=== PATIENT | female | born 2000 | race Two or more races ===

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

== ENCOUNTER 2023-01-17 12:26 | Emergency (ER) | payer OTHER ==
[2023-01-17 12:41] VITALS: BP 112/61; PULSE 72; RESP 18; TEMP 98.1; BMI 41.0
[2023-01-17] MEDS ORDERED: SODIUM CHLORIDE 1,000 ML IV STA (13:04)
[2023-01-17 14:55] LABS: URINE APPEARANCE CLEAR; URINE BILIRUBIN NEGATIVE (NEGATIVE); URINE COLOR YELLOW; URINE GLUCOSE (UA) NEGATIVE (NEGATIVE); URINE KETONE NEGATIVE (NEGATIVE); URINE LEUK ESTERASE NEGATIVE (NEGATIVE); URINE NITRITE NEGATIVE (NEGATIVE); URINE PROTEIN NEGATIVE (NEGATIVE); URINE UROBILINOGEN 0.2 mg/dL (0.2-1.0)
[2023-01-17 15:06] LABS: BASO % 0.6 % (0-2.0); EOS % 2.2 % (0-4.5); HEMATOCRIT 38.1 % (32.4-45.2); HEMOGLOBIN 11.7 GM/dL (10.7-15.3); LYMPH % 32.1 % (8-40); MCH 22.2 pg (25.7-33.7); MCHC 30.8 g/dl (32.0-36.0); MEAN PLT VOLUME 8.6 fl (7.5-11.1); MONO % 6.9 % (3.8-10.2); NEUT % 58.2 % (42.8-82.8); PLATELET COUNT 285 10^3/uL (134-434); RBC 5.28 M/mm3 (3.60-5.2); RDW 14.7 % (11.6-15.6); WHITE BLOOD COUNT 7.5 K/mm3 (4.0-10.0)
[2023-01-17 15:39] LABS: POTASSIUM 5.2 mmol/L (3.5-5.1)
[2023-01-17 15:40] LABS: CALCIUM 8.4 mg/dL (8.5-10.1)
[2023-01-17 15:42] LABS: ALBUMIN 3.6 g/dl (3.4-5.0); BLOOD UREA NITROGEN 8.6 mg/dL (7-18)
[2023-01-17 15:44] LABS: CREATININE 0.7 mg/dL (0.55-1.3)
[2023-01-17 15:45] LABS: BILIRUBIN,TOTAL 0.6 mg/dL (0.2-1); TOT PROT 7.2 g/dl (6.4-8.2)
== END 2023-01-17 17:45 | disposition home or self-care (01) ==
LOC: JER 12:26
PROC: 3E0337Z Introduction of Electrolytic and Water Balance Substance into Peripheral Vein, Percutaneous Approach (ICD-10-PCS; principal; 2023-01-17)
DX: O26.891 Other specified pregnancy related conditions, first trimester (principal); R42 Dizziness and giddiness; R11.0 Nausea; Z3A.01 Less than 8 weeks gestation of pregnancy
CPT/HCPCS: 36415; 76801-TC; 80053; 81003; 84702; 84703; 85025; 87086

== ENCOUNTER 2023-01-26 23:40 | Inpatient (IN) | payer OTHER ==
[2023-01-27] MEDS ORDERED: ONDANSETRON 4 MG/2 ML VIAL IVPUSH ONE (00:13)
[2023-01-27] MEDS ORDERED: LACTATED RINGERS SOLUTION 1000 ML INFUS.BAG IV ONE (00:15)
[2023-01-27] MEDS ORDERED: ONDANSETRON 4 MG/2 ML VIAL ONE (00:20)
[2023-01-27 00:47] LABS: BASO % 0.5 % (0-2.0); EOS % 0.1 % (0-4.5); HEMATOCRIT 33.9 % (32.4-45.2); HEMOGLOBIN 10.9 GM/dL (10.7-15.3); LYMPH % 19.5 % (8-40); MCH 22.5 pg (25.7-33.7); MCHC 32.2 g/dl (32.0-36.0); MEAN PLT VOLUME 8.5 fl (7.5-11.1); MONO % 5.8 % (3.8-10.2); NEUT % 74.1 % (42.8-82.8); PLATELET COUNT 267 10^3/uL (134-434); RBC 4.85 M/mm3 (3.60-5.2); RDW 14.9 % (11.6-15.6); WHITE BLOOD COUNT 9.3 K/mm3 (4.0-10.0)
[2023-01-27 01:04] LABS: POTASSIUM 5.1 mmol/L (3.5-5.1)
[2023-01-27 01:07] LABS: ALBUMIN 3.4 g/dl (3.4-5.0); BLOOD UREA NITROGEN 6.2 mg/dL (7-18); MAGNESIUM 1.9 mg/dL (1.8-2.4)
[2023-01-27 01:08] LABS: CALCIUM 8.4 mg/dL (8.5-10.1)
[2023-01-27 01:10] LABS: CREATININE 0.7 mg/dL (0.55-1.3); PHOSPHOROUS 3.2 mg/dL (2.5-4.9)
[2023-01-27 01:11] LABS: BILIRUBIN,TOTAL 0.9 mg/dL (0.2-1); TOT PROT 7.1 g/dl (6.4-8.2)
[2023-01-27] MEDS ORDERED: SODIUM CHLORIDE 0.9% 500 ML INFUS.BAG IV ONE ×2 (01:21→18:12)
[2023-01-27] MEDS ORDERED: METOCLOPRAMIDE HCL INJECTION 10 MG/2 ML VIAL IVPUSH ONE (02:06)
[2023-01-27] MEDS ORDERED: METOCLOPRAMIDE HCL INJECTION 10 MG/2 ML VIAL ONE (02:07)
[2023-01-27] MEDS ORDERED: ACETAMINOPHEN INJECTION 100 ML IVPB ONE (02:31)
[2023-01-27] MEDS ORDERED: PYRIDOXINE HCL 100 MG/1 ML VIAL IM ONE (02:31)
[2023-01-27] MEDS ORDERED: ACETAMINOPHEN 1000 MG/100 ML BAG IVPB ONE (02:31)
[2023-01-27] MEDS: PYRIDOXINE HCL (B-6) 50 MG TABLET (FP) PO SCH ×4 (03:40→17:08)
[2023-01-27] MEDS ORDERED: SODIUM CHLORIDE 1,000 ML IV SCH (03:45)
[2023-01-27] MEDS: diphenhydrAMINE HCL 25 MG CAPSULE (FP) PO SCH ×3 (03:54→10:14)
[2023-01-27] MEDS ORDERED: PANTOPRAZOLE SODIUM 40 MG VIAL IVPUSH ONE (06:24)
[2023-01-27] MEDS ORDERED: PANTOPRAZOLE SODIUM 40 MG/100 ML BAG IVPB ONE (06:31)
[2023-01-27] MEDS ORDERED: MAG HYDROX/AL HYDROX/SIMETH 30 ML UNIT-DOSE CUP ONE (06:31)
[2023-01-27] MEDS: MAG HYDROX/AL HYDROX/SIMETH 30 ML UNIT-DOSE CUP PO SCH ×4 (06:38→17:12)
[2023-01-27 07:21] LABS: HEMATOCRIT 32.7 % (32.4-45.2); HEMOGLOBIN 10.1 GM/dL (10.7-15.3); MCHC 30.9 g/dl (32.0-36.0); MEAN CELL VOLUME 71.2 fl (80-96); MEAN PLT VOLUME 8.9 fl (7.5-11.1); PLATELET COUNT 264 10^3/uL (134-434); POTASSIUM 3.4 mmol/L (3.5-5.1); RBC 4.59 M/mm3 (3.60-5.2); RDW 14.4 % (11.6-15.6); WHITE BLOOD COUNT 8.1 K/mm3 (4.0-10.0)
[2023-01-27 07:28] LABS: CALCIUM 8.7 mg/dL (8.5-10.1)
[2023-01-27 07:29] LABS: BLOOD UREA NITROGEN 5.6 mg/dL (7-18); MAGNESIUM 1.8 mg/dL (1.8-2.4); PHOSPHOROUS 3.2 mg/dL (2.5-4.9)
[2023-01-27 07:30] LABS: ALBUMIN 3.3 g/dl (3.4-5.0)
[2023-01-27] MEDS ORDERED: diphenhydrAMINE HCL 25 MG CAPSULE (FP) PO ONE (07:30)
[2023-01-27 07:32] LABS: BILIRUBIN,TOTAL 0.9 mg/dL (0.2-1); CREATININE 0.5 mg/dL (0.55-1.3); TOT PROT 6.3 g/dl (6.4-8.2)
[2023-01-27 12:03] VITALS: BMI 38.8
[2023-01-27] MEDS: ACETAMINOPHEN 325 MG TABLET (FP) PO PRN (15:11)
[2023-01-27] MEDS: SODIUM CHLORIDE 0.9% 500 ML INFUS.BAG IV ONE ×2 (15:16→15:17)
[2023-01-27] MEDS: ONDANSETRON 4 MG/2 ML VIAL IVPUSH PRN ×2 (15:17→19:35)
[2023-01-27 15:55] VITALS: RESP 18
[2023-01-27] MEDS ORDERED: SODIUM CHLORIDE 1,000 ML IV ONE (18:30)
[2023-01-28] MEDS: MAG HYDROX/AL HYDROX/SIMETH 30 ML UNIT-DOSE CUP PO SCH ×4 (02:57→17:39)
[2023-01-28] MEDS: ONDANSETRON 4 MG/2 ML VIAL IVPUSH PRN ×2 (02:57→08:32)
[2023-01-28] MEDS: PYRIDOXINE HCL (B-6) 50 MG TABLET (FP) PO SCH ×3 (06:07→16:42)
[2023-01-28 11:46] LABS: HEMATOCRIT 34.4 % (32.4-45.2); HEMOGLOBIN 10.6 GM/dL (10.7-15.3); MCH 21.9 pg (25.7-33.7); MCHC 30.8 g/dl (32.0-36.0); MEAN CELL VOLUME 71.3 fl (80-96); PLATELET COUNT 267 10^3/uL (134-434); RBC 4.83 M/mm3 (3.60-5.2); RDW 14.4 % (11.6-15.6)
[2023-01-28 12:09] LABS: BLOOD UREA NITROGEN 5.7 mg/dL (7-18)
[2023-01-28 12:11] LABS: POTASSIUM 3.2 mmol/L (3.5-5.1)
[2023-01-28 12:12] LABS: CALCIUM 8.5 mg/dL (8.5-10.1); MAGNESIUM 2.1 mg/dL (1.8-2.4)
[2023-01-28 12:13] LABS: CREATININE 0.4 mg/dL (0.55-1.3)
[2023-01-28] MEDS ORDERED: ONDANSETRON 4 MG/2 ML VIAL IVPB PRN (14:22)
[2023-01-28] MEDS: SODIUM CHLORIDE 0.9%/KCL 20 MEQ/1,000 ML INFUS.BAG IV SCH ×2 (14:32→23:37)
[2023-01-29 00:32] LABS: EPI CELLS >36 /uL (0-25.1); HYALINE CASTS 3 /uL (0-3.1); PH,URINE 6.5 (5.0-8.0); URINE APPEARANCE TURBID; URINE BACTERIA 341 /uL (0-1359); URINE BILIRUBIN 1+ (NEGATIVE); URINE COLOR DK YELLOW; URINE GLUCOSE (UA) NEGATIVE (NEGATIVE); URINE KETONE 4+ (NEGATIVE); URINE LEUK ESTERASE NEGATIVE (NEGATIVE); URINE NITRITE NEGATIVE (NEGATIVE); URINE PROTEIN 1+ (NEGATIVE); URINE RBC 22 /uL (0-23.9); URINE WBC 12 /uL (0-25.8)
[2023-01-29] MEDS: ACETAMINOPHEN 325 MG TABLET (FP) PO PRN (02:29)
[2023-01-29] MEDS ORDERED: ONDANSETRON 8 MG TABLET (FP) PO PRN (06:00)
[2023-01-29] MEDS: PYRIDOXINE HCL (B-6) 50 MG TABLET (FP) PO SCH ×3 (06:18→15:52)
[2023-01-29 10:47] LABS: HEMATOCRIT 33.5 % (32.4-45.2); HEMOGLOBIN 10.4 GM/dL (10.7-15.3); MCH 22.1 pg (25.7-33.7); MCHC 31.1 g/dl (32.0-36.0); MEAN CELL VOLUME 71.2 fl (80-96); PLATELET COUNT 263 10^3/uL (134-434); RBC 4.71 M/mm3 (3.60-5.2); RDW 14.4 % (11.6-15.6); WHITE BLOOD COUNT 10.6 K/mm3 (4.0-10.0)
[2023-01-29 11:01] LABS: POTASSIUM 3.2 mmol/L (3.5-5.1)
[2023-01-29 11:09] LABS: CALCIUM 8.6 mg/dL (8.5-10.1)
[2023-01-29 11:10] LABS: BLOOD UREA NITROGEN 6.1 mg/dL (7-18)
[2023-01-29 11:13] LABS: CREATININE 0.5 mg/dL (0.55-1.3); PHOSPHOROUS 3.1 mg/dL (2.5-4.9)
[2023-01-29] MEDS: MAG HYDROX/AL HYDROX/SIMETH 30 ML UNIT-DOSE CUP PO SCH ×2 (11:15→17:22)
[2023-01-29] MEDS ORDERED: ONDANSETRON 4 MG/2 ML VIAL IVPUSH PRN (14:50)
[2023-01-29] MEDS: SODIUM CHLORIDE 1,000 ML IV SCH (15:53)
[2023-01-29] MEDS ORDERED: POTASSIUM CHLORIDE TABS 20 MEQ TABLET.ER (FP) PO ONE (17:20)
[2023-01-30] MEDS: MAG HYDROX/AL HYDROX/SIMETH 30 ML UNIT-DOSE CUP PO SCH ×5 (00:40→11:34)
[2023-01-30] MEDS: SODIUM CHLORIDE 1,000 ML IV SCH (01:09)
[2023-01-30] MEDS: PYRIDOXINE HCL (B-6) 50 MG TABLET (FP) PO SCH ×2 (06:44→10:43)
[2023-01-30 09:26] VITALS: BP 140/80; PULSE 63; TEMP 98.3
[2023-01-30] MEDS ORDERED: PRENATAL VITAMINS W/ FOLIC ACID TABLET (FP) PO SCH (10:00)
[2023-01-30 10:34] LABS: HEMATOCRIT 33.1 % (32.4-45.2); HEMOGLOBIN 10.6 GM/dL (10.7-15.3); MCH 22.4 pg (25.7-33.7); MCHC 32.2 g/dl (32.0-36.0); MEAN CELL VOLUME 69.5 fl (80-96); MEAN PLT VOLUME 8.8 fl (7.5-11.1); PLATELET COUNT 258 10^3/uL (134-434); RBC 4.75 M/mm3 (3.60-5.2); RDW 14.3 % (11.6-15.6); WHITE BLOOD COUNT 10.4 K/mm3 (4.0-10.0)
[2023-01-30 11:23] LABS: ALBUMIN 3.2 g/dl (3.4-5.0)
[2023-01-30 11:25] LABS: BLOOD UREA NITROGEN 5.3 mg/dL (7-18); CALCIUM 8.2 mg/dL (8.5-10.1); PHOSPHOROUS 3.5 mg/dL (2.5-4.9); TOT PROT 6.2 g/dl (6.4-8.2)
[2023-01-30 11:27] LABS: CREATININE 0.4 mg/dL (0.55-1.3)
[2023-01-30 11:32] LABS: BILIRUBIN,TOTAL 0.9 mg/dL (0.2-1)
[2023-01-30] MEDS ORDERED: POTASSIUM CHLORIDE ORAL LIQUID 20 MEQ/15 ML PO ONE (13:53)
[2023-01-30] MEDS ORDERED: SODIUM CHLORIDE 0.9%/KCL 20 MEQ/1,000 ML INFUS.BAG IV SCH (14:00)
[2023-01-30] MEDS ORDERED: POTASSIUM CHLORIDE TABS 20 MEQ TABLET.ER (FP) PO SCH (14:30)
== END 2023-01-30 15:15 | disposition home or self-care (01) | DRG 566 ==
LOC: JER 23:40 → JERBED 01-27 01:49 → J6S 01-27 09:39 → OBSVTOIN 01-29 13:24
PROVIDERS: ADMIT Internal Medicine; ATTEND Internal Medicine
DX: O21.0 Mild hyperemesis gravidarum (principal); O99.011 Anemia complicating pregnancy, first trimester; Z3A.08 8 weeks gestation of pregnancy
CPT/HCPCS: 0241U-QW; 36415; 76705-TC; 76801-TC; 80048; 80053; 81003; 82728; 83036; 83540; 83550; 83690; 83735; 84100; 84439; 84443; 85025; 85027; 87086; 93005; 93010; 99285-25; G0378

== ENCOUNTER 2023-05-23 00:04 | Observation (INO) | payer OTHER ==
[2023-05-23 00:16] VITALS: RESP 18; TEMP 97.7; BMI 38.2
[2023-05-23] MEDS ORDERED: METOCLOPRAMIDE HCL INJECTION 10 MG/2 ML VIAL ONE (00:58)
[2023-05-23] MEDS: LACTATED RINGERS SOLUTION 1000 ML INFUS.BAG IV ONE (01:16)
[2023-05-23] MEDS: METOCLOPRAMIDE HCL INJECTION 10 MG/2 ML VIAL IVPB ONE (01:16)
[2023-05-23 01:20] LABS: BASO % 0.5 % (0-2.0); HEMOGLOBIN 10.8 GM/dL (10.7-15.3); LYMPH % 15.7 % (8-40); MCH 22.9 pg (25.7-33.7); MCHC 32.6 g/dl (32.0-36.0); MEAN CELL VOLUME 70.3 fl (80-96); MEAN PLT VOLUME 8.8 fl (7.5-11.1); MONO % 7.1 % (3.8-10.2); NEUT % 76.7 % (42.8-82.8); PLATELET COUNT 323 10^3/uL (134-434); RDW 14.3 % (11.6-15.6)
[2023-05-23 01:22] LABS: EPI CELLS >36 /uL (0-25.1); HYALINE CASTS 2 /uL (0-3.1); PH,URINE >= 9.0 (5.0-8.0); URINE APPEARANCE CLOUDY; URINE BACTERIA 924 /uL (0-1359); URINE BILIRUBIN 1+ (NEGATIVE); URINE COLOR DK YELLOW; URINE GLUCOSE (UA) NEGATIVE (NEGATIVE); URINE KETONE 4+ (NEGATIVE); URINE LEUK ESTERASE TRACE (NEGATIVE); URINE NITRITE NEGATIVE (NEGATIVE); URINE PROTEIN 2+ (NEGATIVE); URINE RBC 36 /uL (0-23.9); URINE WBC 35 /uL (0-25.8)
[2023-05-23 01:42] LABS: POTASSIUM 3.6 mmol/L (3.5-5.1)
[2023-05-23 01:44] LABS: CALCIUM 8.7 mg/dL (8.5-10.1)
[2023-05-23 01:45] LABS: BLOOD UREA NITROGEN 6.6 mg/dL (7-18)
[2023-05-23 01:47] LABS: CREATININE 0.5 mg/dL (0.55-1.3)
[2023-05-23 01:49] LABS: TOT PROT 6.9 g/dl (6.4-8.2)
[2023-05-23] MEDS ORDERED: ONDANSETRON 4 MG/2 ML VIAL ONE ×4 (01:57→17:24)
[2023-05-23] MEDS: ONDANSETRON 4 MG/2 ML VIAL IVPB ONE (02:19)
[2023-05-23] MEDS ORDERED: PROMETHAZINE HCL 25 MG/1 ML VIAL ONE (03:15)
[2023-05-23] MEDS: PROMETHAZINE HCL 50 MG/1 ML AMP IM ONE (03:24)
[2023-05-23] MEDS ORDERED: ACETAMINOPHEN INJECTION 100 ML IVPB ONE (03:32)
[2023-05-23] MEDS: ACETAMINOPHEN 1000 MG/100 ML BAG IVPB ONE (03:44)
[2023-05-23] MEDS ORDERED: ACETAMINOPHEN 1000 MG/100 ML BAG IVPB PRN (04:43)
[2023-05-23] MEDS: CEPHALEXIN MONOHYDRATE 500 MG CAPSULE (UD) PO ONE (05:27)
[2023-05-23] MEDS: SODIUM CHLORIDE 1,000 ML IV SCH (06:22)
[2023-05-23] MEDS: ONDANSETRON 4 MG/2 ML VIAL IVPB PRN (06:37)
[2023-05-23] MEDS: SULBACTAM NA IVPB SCH (06:42)
[2023-05-23] MEDS: AMPICILLIN NA IVPB SCH (06:42)
[2023-05-23] MEDS: SODIUM CHLORIDE IVPB SCH (06:42)
[2023-05-23] MEDS ORDERED: PIPERACILLIN/TAZOB 3.375 GM 3.375 GM in DEXTROSE 5%-WATER - 50 ML IVPB SCH (06:45)
[2023-05-23] MEDS ORDERED: PIPERACILLIN/TAZOB 3.375 GM 3.375 GM/50 ML BAG IVPB ONE ×2 (06:48→12:49)
[2023-05-23] MEDS: PIPERACILLIN/TAZOB 3.375 GM 3.375 GM in DEXTROSE 5%-WATER - 50 ML IVPB SCH (06:50)
[2023-05-23 07:20] LABS: HEMATOCRIT 30.1 % (32.4-45.2); HEMOGLOBIN 9.8 GM/dL (10.7-15.3); MCH 23.2 pg (25.7-33.7); MCHC 32.6 g/dl (32.0-36.0); MEAN CELL VOLUME 71.2 fl (80-96); MEAN PLT VOLUME 8.9 fl (7.5-11.1); PLATELET COUNT 266 10^3/uL (134-434); RBC 4.23 M/mm3 (3.60-5.2); RDW 14.3 % (11.6-15.6); WHITE BLOOD COUNT 10.6 K/mm3 (4.0-10.0)
[2023-05-23 08:03] LABS: POTASSIUM 3.4 mmol/L (3.5-5.1)
[2023-05-23 08:07] LABS: ALBUMIN 2.6 g/dl (3.4-5.0); CALCIUM 8.2 mg/dL (8.5-10.1); MAGNESIUM 1.7 mg/dL (1.8-2.4)
[2023-05-23 08:08] LABS: BLOOD UREA NITROGEN 6.2 mg/dL (7-18)
[2023-05-23 08:10] LABS: CREATININE 0.4 mg/dL (0.55-1.3)
[2023-05-23 08:11] LABS: PHOSPHOROUS 3.4 mg/dL (2.5-4.9)
[2023-05-23 08:12] LABS: TOT PROT 6.1 g/dl (6.4-8.2)
[2023-05-23] MEDS ORDERED: CEFTRIAXONE 1,000 MG in DEXTROSE 5%-WATER - 50 ML IVPB SCH (10:00)
[2023-05-23 10:43] VITALS: BP 122/62; PULSE 80
[2023-05-23] MEDS ORDERED: SODIUM CHLORIDE 1,000 ML IV SCH (10:45)
[2023-05-23] MEDS ORDERED: PIPERACILLIN/TAZOB 4.5 GM 4.5 GM/100 ML BAG IVPB ONE (17:25)
== END 2023-05-23 19:10 | disposition left against medical advice (07) ==
LOC: JER 00:04 → JERBED 02:21
PROVIDERS: ADMIT Internal Medicine
PROC: 3E03329 Introduction of Other Anti-infective into Peripheral Vein, Percutaneous Approach (ICD-10-PCS; principal; 2023-05-23)
PROC: 3E033NZ Introduction of Analgesics, Hypnotics, Sedatives into Peripheral Vein, Percutaneous Approach (ICD-10-PCS; 2023-05-23)
PROC: 3E0337Z Introduction of Electrolytic and Water Balance Substance into Peripheral Vein, Percutaneous Approach (ICD-10-PCS; 2023-05-23)
PROC: 3E033GC Introduction of Other Therapeutic Substance into Peripheral Vein, Percutaneous Approach (ICD-10-PCS; 2023-05-23)
DX: O21.9 Vomiting of pregnancy, unspecified (principal); R11.2 Nausea with vomiting, unspecified; Z3A.24 24 weeks gestation of pregnancy; R10.31 Right lower quadrant pain
CPT/HCPCS: 0241U-QW; 36415; 76700-TC; 80053; 81003; 83690; 83735; 84100; 85025; 85027; 87086; 93005; 93010; 96365; 96372; 96375; 96376; 99285-25; G0378; J0131

== ENCOUNTER 2023-08-29 14:15 | Inpatient (IN) | payer OTHER ==
[2023-08-29] MEDS: ELECTROLYTE-148 SOLN 1,000 ML IV SCH ×2 (14:45→16:45)
[2023-08-29 15:23] VITALS: BMI 44.1
[2023-08-29 16:07] LABS: BASO % 0.2 % (0-2.0); HEMATOCRIT 37.2 % (32.4-45.2); HEMOGLOBIN 11.6 GM/dL (10.7-15.3); LYMPH % 17.1 % (8-40); MCH 21.6 pg (25.7-33.7); MCHC 31.2 g/dl (32.0-36.0); MEAN CELL VOLUME 69.3 fl (80-96); MEAN PLT VOLUME 8.9 fl (7.5-11.1); MONO % 7.8 % (3.8-10.2); NEUT % 74.9 % (42.8-82.8); PLATELET COUNT 308 10^3/uL (134-434); RBC 5.37 M/mm3 (3.60-5.2); RDW 16.8 % (11.6-15.6); WHITE BLOOD COUNT 9.8 K/mm3 (4.0-10.0)
[2023-08-29 16:17] LABS: INR 0.93 (0.83-1.09); PROTHROMBIN TIME (PATIENT) 10.5 SEC (9.7-13.0)
[2023-08-29 16:20] LABS: ACTIVATED PTT 27.3 SECONDS (25.2-36.5)
[2023-08-29 16:23] LABS: POTASSIUM 3.2 mmol/L (3.5-5.1)
[2023-08-29 16:26] LABS: BLOOD UREA NITROGEN 6.9 mg/dL (7-18); CALCIUM 8.5 mg/dL (8.5-10.1)
[2023-08-29 16:30] LABS: CREATININE 0.5 mg/dL (0.55-1.3)
[2023-08-29 16:42] LABS: SYPHILIS W/ RPR CONF NON-REACTIVE (NONREACTIVE)
[2023-08-29] MEDS ORDERED: FENTANYL/BUPIVACAINE/NS/PF - PCEA - 50 ML DISP.SYRIN EP ONE ×2 (16:50→22:25)
[2023-08-29] MEDS: AMPICILLIN - 2 GM in SODIUM CHLORIDE 100 ML IVPB ONE (17:00)
[2023-08-29] MEDS ORDERED: AMPICILLIN SODIUM 2 GM VIAL ONE (17:00)
[2023-08-29 17:07] LABS: ANISOCYTOSIS 3+; MACROCYTOSIS 0
[2023-08-29 17:11] LABS: HIV INTERPRETATION NEGATIVE (NEGATIVE)
[2023-08-29] MEDS ORDERED: FENTANYL CITRATE/PF 50 MCG/ML VIAL ONE (17:32)
[2023-08-29] MEDS ORDERED: BUPIVACAINE HCL/PF 0.25% (2.5MG/ML) 10 ML VIAL ONE (17:32)
[2023-08-29] MEDS: FENTANYL/BUPIVACAINE/NS/PF - PCEA - 50 ML DISP.SYRIN EP SCH (17:55)
[2023-08-29] MEDS ORDERED: NALOXONE HCL 0.4 MG/ML VIAL IVPUSH PRN (18:01)
[2023-08-29] MEDS ORDERED: AMPICILLIN SODIUM 1 GM VIAL ONE (20:31)
[2023-08-29] MEDS: AMPICILLIN - 1 GM in SODIUM CHLORIDE 100 ML IVPB SCH (20:37)
[2023-08-29] MEDS ORDERED: OXYTOCIN 20 UNITS in 0.9% NS 20 UNIT/1,000 ML INFUS.BAG IV ONE (22:05)
[2023-08-29] MEDS ORDERED: LIDOCAINE HCL 1% PRESERVATIVE FREE - 30ML VIAL ONE (22:05)
[2023-08-29] MEDS: OXYTOCIN 20 UNITS in 0.9% NS 20 UNIT/1,000 ML INFUS.BAG IV SCH (22:57)
[2023-08-29] MEDS ORDERED: BENZOCAINE 20% 57 GM BOTTLE TP PRN (23:15)
[2023-08-29] MEDS ORDERED: oxyCODONE HCL 5 MG TABLET PO PRN (23:15)
[2023-08-29] MEDS ORDERED: BISACODYL 10 MG SUPP.RECT RC PRN (23:15)
[2023-08-29] MEDS ORDERED: METHYLERGONOVINE MALEATE 0.2 MG/1 ML AMP IM PRN (23:15)
[2023-08-29] MEDS ORDERED: WITCH HAZEL 50% (TUCKS) 40 PAD/JAR PAD TP PRN (23:15)
[2023-08-29] MEDS ORDERED: ACETAMINOPHEN 325 MG TABLET (FP) PO PRN (23:15)
[2023-08-29] MEDS ORDERED: BENZOCAINE 28 GM HEMORRHOIDAL OINTMENT TP PRN (23:15)
[2023-08-29 23:28] LABS: CORD BASE EXCESS 0.4 mmol/L (0-2); CORD HCO3 26.5 mmHg (20-29); CORD PCO2 47.6 mmHg (30-78); CORD PCO2 57.7 mmHg (30-78); CORD pH 7.334 (7.14-7.44); CORD pH 7.363 (7.14-7.44)
[2023-08-30] MEDS: IBUPROFEN 600 MG TABLET (FP) PO PRN (01:43)
[2023-08-30] MEDS: ONDANSETRON 4 MG/2 ML VIAL IVPUSH PRN (04:36)
[2023-08-30 08:05] LABS: BASO % 0.2 % (0-2.0); EOS % 0.1 % (0-4.5); HEMATOCRIT 32.9 % (32.4-45.2); HEMOGLOBIN 10.4 GM/dL (10.7-15.3); LYMPH % 12.3 % (8-40); MCH 22.4 pg (25.7-33.7); MCHC 31.6 g/dl (32.0-36.0); MEAN PLT VOLUME 9.1 fl (7.5-11.1); MONO % 9.1 % (3.8-10.2); NEUT % 78.3 % (42.8-82.8); PLATELET COUNT 254 10^3/uL (134-434); RBC 4.63 M/mm3 (3.60-5.2); RDW 16.4 % (11.6-15.6); WHITE BLOOD COUNT 13.7 K/mm3 (4.0-10.0)
[2023-08-30] MEDS ORDERED: SENNOSIDES/DOCUSATE COMBO (SENNA PLUS) TABLET (UD) PO PRN (22:00)
[2023-08-31] MEDS: FAMOTIDINE 20 MG TABLET PO ONE (08:07)
[2023-08-31] MEDS: METOCLOPRAMIDE HCL 10 MG TABLET (FP) PO ONE (08:36)
[2023-08-31 09:11] VITALS: BP 127/76; PULSE 67; RESP 18; TEMP 98.2
== END 2023-08-31 12:30 | disposition home or self-care (01) | DRG 560 ==
LOC: JDEL 14:15 → JLDR 15:00 → J3W 08-30 01:26
PROVIDERS: ADMIT Obstetrics & Gynecology; ATTEND Obstetrics & Gynecology
PROC: 0HQ9XZZ Repair Perineum Skin, External Approach (ICD-10-PCS; principal; 2023-08-29)
PROC: 10E0XZZ Delivery of Products of Conception, External Approach (ICD-10-PCS; 2023-08-29)
DX: O99.824 Streptococcus B carrier state complicating childbirth (principal); O70.0 First degree perineal laceration during delivery; O69.2XX0 Labor and delivery complicated by other cord entanglement, with compression, not applicable or unspecified; Z3A.38 38 weeks gestation of pregnancy; Z37.0 Single live birth
CPT/HCPCS: 36415; 36600; 59409; 76819-TC; 80048; 80053; 82803; 85025; 85610; 85730; 86780; 86803; 86850; 86900; 86901; 87389

== ENCOUNTER 2024-11-08 11:19 | Emergency (ER) | payer OTHER ==
[2024-11-08 11:30] VITALS: BMI 43.2
[2024-11-08] MEDS ORDERED: MAG HYDROX/AL HYDROX/SIMETH 30 ML UNIT-DOSE CUP ONE (11:55)
[2024-11-08] MEDS ORDERED: ONDANSETRON 4 MG/2 ML VIAL ONE (11:55)
[2024-11-08] MEDS ORDERED: ACETAMINOPHEN INJECTION 100 ML ONE (11:55)
[2024-11-08] MEDS ORDERED: FAMOTIDINE 20 MG/50 ML IVPB 20 MG/50 ML MG IVPB ONE (11:55)
[2024-11-08] MEDS: ACETAMINOPHEN 1000 MG/100 ML BAG IVPB ONE (12:10)
[2024-11-08] MEDS: FAMOTIDINE 20 MG/50 ML IVPB 20 MG/50 ML MG IVPB ONE (12:10)
[2024-11-08] MEDS: LACTATED RINGERS SOLUTION 1000 ML INFUS.BAG IV ONE (12:10)
[2024-11-08] MEDS: ONDANSETRON 4 MG/2 ML VIAL IVPUSH ONE (12:10)
[2024-11-08] MEDS: MAG HYDROX/AL HYDROX/SIMETH 30 ML UNIT-DOSE CUP PO ONE (12:10)
[2024-11-08 12:26] LABS: ABSOLUTE IMMATURE GRANULOCYTES 0.04 x10^3/uL (0.0-0.031); BASOPHILS # 0.03 x10^3/uL (0.01-0.08); EOSINOPHIL % 0.0 % (0.7-5.8); EOSINOPHILS # 0.00 x10^3/uL (0.04-0.36); MCHC 30.4 g/dl (32.2-35.5); MEAN CELL VOLUME 70.0 fl (79.4-94.8); MEAN PLT VOLUME 10.8 fl (9.4-12.3); MONOCYTE # 0.58 x10^3/uL (0.24-0.86); MONOCYTE % 5.8 % (4.7-12.5); RDW 15.9 % (12.1-16.5)
[2024-11-08 13:06] LABS: GLUCOSE,RANDOM 108 mg/dL (74-106); TOT PROT 7.0 g/dl (6.4-8.2)
[2024-11-08 13:07] LABS: CO2 28 mmol/L (21-32)
[2024-11-08 13:09] LABS: ALK PHOS 88 U/L (40-150)
[2024-11-08 13:12] LABS: CREATININE 0.74 mg/dL (0.55-1.3); SGOT/AST 12 U/L (5-34); SGPT/ALT 13 U/L (0-55)
[2024-11-08 13:39] LABS: HIV INTERPRETATION NEGATIVE (NEGATIVE)
[2024-11-08 13:40] LABS: HCV DIAGNOSTIC IN-HOUSE W/RFLX NON-REACTIVE (NONREACTIVE)
[2024-11-08] MEDS ORDERED: HALOPERIDOL LACTATE 5 MG/ML ONE (14:54)
[2024-11-08] MEDS: HALOPERIDOL LACTATE 5 MG/ML IVPUSH ONE (15:01)
[2024-11-08] MEDS: SODIUM CHLORIDE 0.9% 500 ML INFUS.BAG IV ONE (15:01)
[2024-11-08] MEDS: METOCLOPRAMIDE HCL INJECTION 10 MG/2 ML VIAL IVPUSH ONE (15:44)
[2024-11-08 16:42] VITALS: BP 148/88; PULSE 53; RESP 20; TEMP 98.4
== END 2024-11-08 16:50 | disposition home or self-care (01) ==
LOC: JER 11:19
PROC: 3E033GC Introduction of Other Therapeutic Substance into Peripheral Vein, Percutaneous Approach (ICD-10-PCS; principal; 2024-11-08)
PROC: 3E033GC Introduction of Other Therapeutic Substance into Peripheral Vein, Percutaneous Approach (ICD-10-PCS; 2024-11-08)
PROC: 3E033GC Introduction of Other Therapeutic Substance into Peripheral Vein, Percutaneous Approach (ICD-10-PCS; 2024-11-08)
PROC: 3E033NZ Introduction of Analgesics, Hypnotics, Sedatives into Peripheral Vein, Percutaneous Approach (ICD-10-PCS; 2024-11-08)
DX: R11.2 Nausea with vomiting, unspecified (principal); R10.13 Epigastric pain
CPT/HCPCS: 36415; 71046-TC-FY; 76705-TC; 80053; 82962; 83690; 84702; 84703; 85025; 86803; 87389; 99285-25